=== PATIENT | female | born 1970 | race Two or more races ===

== ENCOUNTER 2020-03-13 17:48 | Inpatient (IN) | payer BC, OTHER ==
[~2020-03-13] VITALS: Ht 154.9 cm; Wt 73.5 kg
--- NOTE | 2020-03-13 18:20 | NUR ---
PT WALKED BACK FROM TRIAGE WITH CHIEF COMPLAINT OF COUGH, FEVER, CHILLS, BODY ACHES SINCE LAST NIGHT.
[2020-03-13] MEDS ORDERED: KETOROLAC 30 MG/1 ML IVPush ONE (18:30)
[2020-03-13] MEDS ORDERED: ACETAMINOPHEN 500 MG TABLET PO ONE (18:30)
[2020-03-13] MEDS ORDERED: ACETAMINOPHEN 500 MG TABLET ONE (18:35)
[2020-03-13] MEDS ORDERED: KETOROLAC 30 MG/1 ML ONE (18:35)
[2020-03-13 18:45] LABS: BASOPHILS % (AUTO) 0 % (0-1); EOSINOPHILS % (AUTO) 0 % (1-7); LYMPHOCYTES % (AUTO) 35 % (22-44); MEAN CORPUSCULAR HEMOGLOBIN 22.3 pg (27.0-34.8); MEAN CORPUSCULAR HGB CONC 31.7 g/dL (32.4-35.8); MEAN PLATELET VOLUME 7.8 fL (7.4-10.4); MONOCYTES % (AUTO) 9 % (2-9); NEUTROPHILS % (AUTO) 56 % (42-75); PLATELET COUNT 117 x10^3/uL (130-400); RED BLOOD COUNT 5.52 x10^6/uL (3.82-5.3); RED CELL DISTRIBUTION WIDTH 15.8 % (9.6-15.2)
[2020-03-13 18:46] LABS: MD MORPH REVIEW ONLY
--- NOTE | 2020-03-13 18:49 | NUR ---
REPORT TO MEENAKSHI GREER
[2020-03-13 18:57] LABS: ALANINE AMINOTRANSFERASE 56 U/L (12-78); ALBUMIN 3.9 g/dL (3.4-5.0); ANION GAP 7 mmol/L (5-15); CALCIUM 8.5 mg/dL (8.5-10.1); CHLORIDE 100 mmol/L (98-107); CREATININE 0.81 mg/dL (0.55-1.02)
--- NOTE | 2020-03-13 18:58 | NUR ---
Report ZOEY Cash./ First contact, IV by EMT. Patent./ Medicated per order, vs updated./ Call richie yang./
[2020-03-13 18:59] LABS: ALKALINE PHOSPHATASE 64 U/L (45-117); BILIRUBIN,TOTAL 0.6 mg/dL (0.2-1.0); TOTAL PROTEIN 7.7 g/dL (6.4-8.2)
[2020-03-13 19:12] LABS: ANISOCYTOSIS 1+; HYPOCHROMIA 1+; MICROCYTOSIS 1+; OVALOCYTES 1+
[2020-03-13 19:13] LABS: <PLATELET ESTIMATE> DECREASED; <PLT MORPHOLOGY> NORMAL PLT MORPH
--- NOTE | 2020-03-13 19:50 | NUR ---
Pt tearful, says she feels "worse", says "my headache is too much". Says toradol/tylenol has not helped at all. Temp 101.
[2020-03-13] MEDS ORDERED: CEFTRIAXONE PMX 1GM/50ML 50 ML ONE (20:13)
[2020-03-13] MEDS ORDERED: METOCLOPRAMIDE 5 MG/ML, 2ML ONE (20:13)
--- NOTE | 2020-03-13 20:20 | NUR ---
VS very stable, temp down./ However, pt moaning in gurney, crying says "too much pain" says head pain and body aches the worst./ IVF started, reglan per order, lab coming to draw bc x2 then will start abx./
--- NOTE | 2020-03-13 20:27 | NUR ---
O2 sats dropped, 88%RA placed on 4L to maintain sat 96%./
[2020-03-13] MEDS ORDERED: SODIUM CHLORIDE 0.9%, 500ML IVBOLUS ONE (20:30)
[2020-03-13] MEDS ORDERED: SODIUM CHLORIDE FLUSH 10ML SYR IVF ONE (20:30)
[2020-03-13] MEDS ORDERED: METOCLOPRAMIDE 5 MG/ML, 2ML IVPush ONE (20:30)
[2020-03-13] MEDS ORDERED: CEFTRIAXONE PMX 1GM/50ML 50 ML IV ONE (20:30)
--- NOTE | 2020-03-13 20:37 | NUR ---
BC x2 drawn./ ABX started./ VSS.
[2020-03-13] MEDS: DOXYCYCLINE 100 MG in DEXTROSE 5% 250 ML IV SCH (20:47)
--- NOTE | 2020-03-13 21:06 | NUR ---
Pt now answering questions for booking clerk, went in right after and pt stating she feels better and is more alert. Covid swab SECURITY CLERK was done by this nurse and walked to the lab. VS remain solid, weaned o2 down 2L sats 98%. All belongings on gurney ready for tx to covid floor. Aprox 100ml of 500ml NS bolus from ER remains. Doxy IV infusing.
[2020-03-13 21:29] VITALS: BP 102/67
[2020-03-13] MEDS ORDERED: IBUP200C8 PO (21:35)
[2020-03-13] MEDS ORDERED: SODIUM CHLORIDE 0.9% 1,000 ML IV SCH (22:00)
[2020-03-13] MEDS ORDERED: ONDANSETRON ODT 4 MG PO PRN (22:00)
[2020-03-13] MEDS ORDERED: OXYcodone IR 5MG TABLET PO PRN (22:00)
[2020-03-13] MEDS ORDERED: DOCUSATE 100 MG CAPSULE PO PRN (22:00)
[2020-03-13] MEDS ORDERED: BISACODYL 10 MG SUPP PR PRN (22:00)
[2020-03-13] MEDS ORDERED: morphine SULFATE 10 MG/ML, 1ML IVPush PRN (22:00)
[2020-03-13] MEDS ORDERED: ONDANSETRON 2MG/ML, 2ML IVPush PRN (22:00)
[2020-03-13] MEDS ORDERED: hydrALAzine 20 MG/ML, 1ML IVPush PRN (22:00)
[2020-03-13] MEDS ORDERED: POLYETHYLENE GLYCOL 17 GM PACKET PO PRN (22:00)
[2020-03-13] MEDS ORDERED: PROMETHAZINE 25 MG/ML, 1ML IM PRN (22:00)
[2020-03-13] MEDS: ENOXAPARIN 40 MG/0.4 ML SQ SCH (22:17)
[2020-03-13] MEDS: ASCORBIC ACID 500 MG TABLET PO SCH (22:56)
[2020-03-13] MEDS: ZINC SULFATE 220 MG CAPSULE PO SCH (22:56)
[2020-03-13] MEDS: DEXAMETHASONE 4 MG/ML, 1ML IVPush SCH (22:56)
[2020-03-13] MEDS: INSULIN LISPRO 100 UNITS/ML, PEN SQ-INSULIN SCH (22:58)
[2020-03-14 01:04] VITALS: BP 99/66
[2020-03-14 07:35] VITALS: BP 114/74
[2020-03-14] MEDS: DEXAMETHASONE 4 MG/ML, 1ML IVPush SCH (07:51)
[2020-03-14] MEDS: INSULIN LISPRO 100 UNITS/ML, PEN SQ-INSULIN SCH ×4 (07:51→20:22)
[2020-03-14] MEDS: ASCORBIC ACID 500 MG TABLET PO SCH ×3 (07:52→20:22)
[2020-03-14] MEDS: ZINC SULFATE 220 MG CAPSULE PO SCH (07:52)
[2020-03-14] MEDS: CHOLECALCIFEROL 5,000u TAB PO SCH (07:52)
[2020-03-14] MEDS: ACETAMINOPHEN 325 MG TABLET PO PRN ×2 (08:08→20:22)
[2020-03-14 08:43] LABS: CHLORIDE 105 mmol/L (98-107)
[2020-03-14 08:47] LABS: BASOPHILS % (AUTO) 0 % (0-1); EOSINOPHILS % (AUTO) 0 % (1-7); LYMPHOCYTES % (AUTO) 16 % (22-44); MEAN CORPUSCULAR HEMOGLOBIN 22.4 pg (27.0-34.8); MEAN CORPUSCULAR HGB CONC 31.6 g/dL (32.4-35.8); MEAN PLATELET VOLUME 8.3 fL (7.4-10.4); MONOCYTES % (AUTO) 2 % (2-9); NEUTROPHILS % (AUTO) 81 % (42-75); PLATELET COUNT 105 x10^3/uL (130-400); RED BLOOD COUNT 5.23 x10^6/uL (3.82-5.3)
[2020-03-14 08:56] LABS: ALANINE AMINOTRANSFERASE 45 U/L (12-78); ALBUMIN 3.5 g/dL (3.4-5.0); ALKALINE PHOSPHATASE 57 U/L (45-117); ANION GAP 6 mmol/L (5-15); BILIRUBIN,TOTAL 0.5 mg/dL (0.2-1.0); CHOLESTEROL, TOTAL 165 mg/dL (140-239); HDL CHOL % 25 % (28-40); HDL CHOLESTEROL (DIRECT) 41 mg/dL (40-60); LDL CHOLESTEROL,CALCULATED 94 mg/dL (54-169); LDL/HDL RATIO 2.3 (0.5-3.0); TRIGLYCERIDES 150 mg/dL (50-200); VLDL CHOLESTEROL 30 mg/dL (0-25)
[2020-03-14 09:01] LABS: D-DIMER 0.19 ug/mlFEU (0.00-0.52)
[2020-03-14 09:08] LABS: MD NO
[2020-03-14] MEDS: DOXYCYCLINE 100 MG in DEXTROSE 5% 250 ML IV SCH ×2 (10:18→22:17)
[2020-03-14] MEDS: CEFTRIAXONE PMX 1GM/50ML 50 ML IV SCH (11:49)
[2020-03-14 12:31] VITALS: BP 120/72
[2020-03-14] MEDS: AZITHROMYCIN 500 MG in SODIUM CHLORIDE 0.9% 250 ML IV SCH (12:47)
[2020-03-14 20:20] VITALS: BP 109/71
[2020-03-14] MEDS: ENOXAPARIN 40 MG/0.4 ML SQ SCH (22:17)
[2020-03-15 03:31] VITALS: BP 109/74
[2020-03-15 06:24] LABS: BASOPHILS % (AUTO) 0 % (0-1); EOSINOPHILS % (AUTO) 0 % (1-7); LYMPHOCYTES % (AUTO) 29 % (22-44); MEAN CORPUSCULAR HEMOGLOBIN 22.2 pg (27.0-34.8); MEAN CORPUSCULAR HGB CONC 31.7 g/dL (32.4-35.8); MEAN PLATELET VOLUME 8.2 fL (7.4-10.4); MONOCYTES % (AUTO) 7 % (2-9); NEUTROPHILS % (AUTO) 64 % (42-75); PLATELET COUNT 118 x10^3/uL (130-400); RED BLOOD COUNT 5.21 x10^6/uL (3.82-5.3); RED CELL DISTRIBUTION WIDTH 15.8 % (9.6-15.2)
[2020-03-15 06:33] LABS: CHLORIDE 107 mmol/L (98-107)
[2020-03-15 06:51] LABS: ALBUMIN 3.3 g/dL (3.4-5.0); ANION GAP 9 mmol/L (5-15); CALCIUM 8.5 mg/dL (8.5-10.1); CREATININE 0.59 mg/dL (0.55-1.02)
[2020-03-15 06:54] LABS: MD NO
[2020-03-15] MEDS: DEXAMETHASONE 4 MG/ML, 1ML IVPush SCH (08:17)
[2020-03-15] MEDS: CEFTRIAXONE PMX 1GM/50ML 50 ML IV SCH (08:18)
[2020-03-15] MEDS: INSULIN LISPRO 100 UNITS/ML, PEN SQ-INSULIN SCH ×2 (08:29→11:36)
[2020-03-15 08:38] LABS: CLOSTRIDIUM DIFFICILE ANTIGEN NEGATIVE; CLOSTRIDIUM DIFFICILE TOXIN NEGATIVE (Negative)
[2020-03-15] MEDS: ASCORBIC ACID 500 MG TABLET PO SCH (09:39)
[2020-03-15] MEDS: AZITHROMYCIN 500 MG in SODIUM CHLORIDE 0.9% 250 ML IV SCH (09:39)
[2020-03-15] MEDS: CHOLECALCIFEROL 5,000u TAB PO SCH (09:39)
[2020-03-15] MEDS: ZINC SULFATE 220 MG CAPSULE PO SCH (09:39)
[2020-03-15] MEDS: DOXYCYCLINE 100 MG in DEXTROSE 5% 250 ML IV SCH (10:15)
[2020-03-15 11:16] VITALS: BP 101/67
[2020-03-15] MEDS ORDERED: ASCO500T9 PO (12:31)
[2020-03-15] MEDS ORDERED: CHOL500045 PO (12:31)
[2020-03-15] MEDS ORDERED: CEFD300C37 PO (12:31)
[2020-03-15] MEDS ORDERED: METF500T PO (12:31)
[2020-03-15] MEDS ORDERED: ZINC220C7 PO (12:31)
[2020-03-15] MEDS ORDERED: AZIT250T PO (12:31)
--- NOTE | 2020-03-17 11:56 | NUR ---
THROUGHPUT RN: PT CALLED AND REQUESTED COPY OF COVID RESULTS. PT POSITIVE, STATES SPOUSE ONEAL DENTON WILL COME TECHNICAL EDITOR RESULTS AND SIGN RELEASE FOR MEDICAL INFORMATION. VERBAL CONSENT FROM PT TO RELEASE RESULTS TO SPOUSE, SPOUSE ONEAL SIGNED PAPER RELEASE IN ER.
== END 2020-03-15 14:00 | disposition home or self-care (01) | DRG 871 ==
LOC: ED 20:55 → EDIP 21:11 → 3N 21:54
PROVIDERS: ADMIT Internal Medicine; ATTEND Family Medicine
DX: A41.9 Sepsis, unspecified organism (principal); J96.01 Acute respiratory failure with hypoxia; U07.1 COVID-19; J12.89 Other viral pneumonia; E11.65 Type 2 diabetes mellitus with hyperglycemia; E87.6 Hypokalemia
CPT/HCPCS: 36415; 71045; 80053; 80061; 80069; 82962; 83036; 83605; 83615; 83735; 84145; 84443; 85025; 85379; 85384; 87040; 87324; 87635; G0378; J0456; J0696; J1100; J1650; J1885; J2405; J7060; J1815; J2765; J7030; J7040; J7050

== ENCOUNTER 2020-03-18 13:58 | Inpatient (IN) | payer OTHER ==
[~2020-03-18] VITALS: Ht 154.9 cm; Wt 74.6 kg
[~2020-03-18 13:58] MED LIST: ASCO500T9 PO; AZIT250T PO; CEFD300C37 PO; CHOL500045 PO; IBUP200C8 PO; METF500T PO; ZINC220C7 PO
--- NOTE | 2020-03-18 14:05 | NUR ---
ONEAL (SPOUSE) [phone] OK TO CALL W/ UPDATES.
[2020-03-18] MEDS ORDERED: ACETAMINOPHEN 500 MG TABLET ONE (14:27)
[2020-03-18] MEDS ORDERED: ONDANSETRON ODT 4 MG ONE (14:28)
[2020-03-18] MEDS ORDERED: ACETAMINOPHEN 500 MG TABLET PO ONE (14:30)
[2020-03-18] MEDS ORDERED: ONDANSETRON ODT 4 MG PO ONE (14:30)
--- NOTE | 2020-03-18 14:34 | NUR ---
Task rn: medicated per emar for fever/nausea emt at bedside for piv from which set of labs including 1 set of blood cultures drawn Room air 82%, Requiring 4L NC for pox >92%
--- NOTE | 2020-03-18 14:50 | NUR ---
REPORT TAKEN FROM TASK RN SHADIA, CARE ASSUMED BY THIS RN.
--- NOTE | 2020-03-18 15:53 | NUR ---
PT PRESENTS TO ED WITH C/O COUGH AND DIFFICULTY BREATHING X 13 DAYS. PT ADMITTED TO THIS HOSPITAL 03/13/20 AND DISCHARGED, UNCERTAIN DISCHARGE DATE. PT STATES SHE BEGAN TO HAVE CHEST PAIN YESTERDAY. PT IS A&O, RESPS EVEN AND UNLABORED. COUGHING FREQUENTLY. TYLENOL AND ZOFRAN ADMINISTERED PER PROTOCOL, FEVER IMPROVED. DROPLET PLUS ISOLATION PRECAUTIONS IN PLACE. PT SEEN AND EXAMINED BY JJ MAY, AWAITING FURTHER ORDERS AT THIS TIME.
[2020-03-18] MEDS ORDERED: IBUPROFEN PO (15:56)
[2020-03-18] MEDS ORDERED: ALBUTEROL/IPRATROPIUM 2.5MG/0.5MG, 3 ML ONE (16:56)
[2020-03-18] MEDS ORDERED: ALBUTEROL/IPRATROPIUM 2.5MG/0.5MG, 3 ML NPPB ONE (17:00)
[2020-03-18 17:07] LABS: ALANINE AMINOTRANSFERASE 40 U/L (12-78); ANION GAP 7 mmol/L (5-15); CALCIUM 8.7 mg/dL (8.5-10.1); CHLORIDE 104 mmol/L (98-107); CREATININE 0.69 mg/dL (0.55-1.02)
[2020-03-18 17:09] LABS: ALKALINE PHOSPHATASE 49 U/L (45-117); BILIRUBIN,TOTAL 0.5 mg/dL (0.2-1.0); TOTAL PROTEIN 6.9 g/dL (6.4-8.2)
--- NOTE | 2020-03-18 17:10 | NUR ---
TASK RN: NEBULIZED PER EMAR FOR COUGH/WHEEZING VITALS UPDATED MD TO BEDSIDE- REPORTS TO ADMIT FOR COVID WORKUP ADD DSTEROIDS ABX
[2020-03-18 17:22] LABS: BASOPHILS % (AUTO) 1 % (0-1); EOSINOPHILS % (AUTO) 0 % (1-7); LYMPHOCYTES % (AUTO) 22 % (22-44); MEAN CORPUSCULAR HEMOGLOBIN 22.1 pg (27.0-34.8); MEAN CORPUSCULAR HGB CONC 31.8 g/dL (32.4-35.8); MEAN PLATELET VOLUME 8.9 fL (7.4-10.4); MONOCYTES % (AUTO) 6 % (2-9); NEUTROPHILS % (AUTO) 71 % (42-75); PLATELET COUNT 111 x10^3/uL (130-400); RED BLOOD COUNT 5.79 x10^6/uL (3.82-5.3); RED CELL DISTRIBUTION WIDTH 15.5 % (9.6-15.2)
--- NOTE | 2020-03-18 17:22 | NUR ---
LAB TO BEDSIDE TO FOR BLOOD CULTURES X2 THEN TO ADMIN ABX
[2020-03-18 17:23] LABS: MD NO
[2020-03-18] MEDS ORDERED: DEXAMETHASONE 4 MG/ML, 1ML ONE (17:28)
[2020-03-18] MEDS ORDERED: CEFTRIAXONE PMX 1GM/50ML 50 ML ONE (17:28)
[2020-03-18] MEDS ORDERED: DEXAMETHASONE 4 MG/ML, 1ML IVPush ONE (17:30)
[2020-03-18] MEDS ORDERED: CEFTRIAXONE PMX 1GM/50ML 50 ML IV ONE (17:30)
[2020-03-18] MEDS ORDERED: DEXAMETHASONE 4 MG TABLET PO ONE (17:30)
[2020-03-18] MEDS ORDERED: AZITHROMYCIN 500 MG in SODIUM CHLORIDE 0.9% 250 ML IV ONE (17:30)
--- NOTE | 2020-03-18 17:30 | NUR ---
this RN confirmed with lab that blood cx have been drawn x 2, RN given ok to give IV abx.
[2020-03-18] MEDS ORDERED: BENZONATATE 100 MG CAPSULE ONE (17:39)
[2020-03-18] MEDS ORDERED: SODIUM CHLORIDE FLUSH 10ML SYR IVF PRN (18:00)
[2020-03-18] MEDS ORDERED: BENZONATATE 100 MG CAPSULE PO ONE (18:00)
[2020-03-18] MEDS: DEXAMETHASONE 4 MG TABLET PO SCH (18:24)
[2020-03-18] MEDS ORDERED: hydrALAzine 20 MG/ML, 1ML IVPush PRN (18:30)
[2020-03-18] MEDS ORDERED: ONDANSETRON ODT 4 MG PO PRN (18:30)
[2020-03-18] MEDS ORDERED: ONDANSETRON 2MG/ML, 2ML IVPush PRN (18:30)
[2020-03-18] MEDS ORDERED: DOCUSATE 100 MG CAPSULE PO PRN (18:30)
--- NOTE | 2020-03-18 19:20 | NUR ---
REPORT TO RN EMLVIN AT BEDSIDE. PT A&O, RESPS EVENAND UNLABORED. ALL MONITORS IN PLACE. CALL LIGHT IN REACH.
[2020-03-18] MEDS ORDERED: ENOXAPARIN 40 MG/0.4 ML ONE (19:39)
[2020-03-18] MEDS ORDERED: TIZA4CAP PO (20:00)
[2020-03-18] MEDS ORDERED: NABU750T7 PO (20:00)
[2020-03-18] MEDS: ENOXAPARIN 40 MG/0.4 ML SQ SCH (20:12)
--- NOTE | 2020-03-18 20:46 | NUR ---
Task RN: Report given to ZOEY Ray. Patient to be transferred to room 425.
[2020-03-18 21:20] VITALS: BP 96/64
[2020-03-18] MEDS: GUAIFENESIN/DM 200-20MG, 10ML UDC PO PRN (21:48)
[2020-03-18] MEDS: DIPHENHYDRAMINE 25 MG CAPSULE PO PRN (21:48)
[2020-03-18] MEDS: ACETAMINOPHEN 325 MG TABLET PO PRN (21:48)
[2020-03-18] MEDS: SODIUM CHLORIDE 0.9% 1,000 ML IV SCH (21:49)
[2020-03-19 00:22] VITALS: BP 89/56
[2020-03-19] MEDS: LORazepam 0.5MG TABLET PO PRN (01:03)
[2020-03-19] MEDS: GUAIFENESIN/DM 200-20MG, 10ML UDC PO PRN ×3 (05:47→20:12)
[2020-03-19] MEDS: ACETAMINOPHEN 325 MG TABLET PO PRN ×3 (05:47→17:14)
[2020-03-19 06:22] LABS: BASOPHILS % (AUTO) 0 % (0-1); EOSINOPHILS % (AUTO) 0 % (1-7); LYMPHOCYTES % (AUTO) 15 % (22-44); MEAN CORPUSCULAR HEMOGLOBIN 22.1 pg (27.0-34.8); MEAN CORPUSCULAR HGB CONC 31.9 g/dL (32.4-35.8); MEAN PLATELET VOLUME 8.7 fL (7.4-10.4); MONOCYTES % (AUTO) 4 % (2-9); NEUTROPHILS % (AUTO) 81 % (42-75); PLATELET COUNT 96 x10^3/uL (130-400); RED BLOOD COUNT 5.31 x10^6/uL (3.82-5.3)
[2020-03-19 06:24] LABS: MD NO
[2020-03-19 06:34] LABS: ALBUMIN 3.1 g/dL (3.4-5.0); ANION GAP 7 mmol/L (5-15); CALCIUM 8.7 mg/dL (8.5-10.1); CHLORIDE 103 mmol/L (98-107)
[2020-03-19 06:44] LABS: ALANINE AMINOTRANSFERASE 37 U/L (12-78); ALKALINE PHOSPHATASE 50 U/L (45-117); BILIRUBIN,TOTAL 0.5 mg/dL (0.2-1.0); CREATININE 0.71 mg/dL (0.55-1.02); TOTAL PROTEIN 7.3 g/dL (6.4-8.2)
[2020-03-19] MEDS: DEXAMETHASONE 4 MG TABLET PO SCH (07:50)
[2020-03-19] MEDS: ASCORBIC ACID 500 MG TABLET PO SCH ×2 (07:50→17:14)
[2020-03-19] MEDS: CHOLECALCIFEROL 1,000 UNIT TABLET PO SCH (07:50)
[2020-03-19 08:03] VITALS: BP 109/71
[2020-03-19] MEDS: SODIUM CHLORIDE 0.9% 1,000 ML IV SCH (11:55)
[2020-03-19] MEDS: INSULIN LISPRO 100 UNITS/ML, PEN SQ-INSULIN SCH ×3 (12:47→20:13)
[2020-03-19 13:46] VITALS: BP 88/55
[2020-03-19 13:49] VITALS: BP 98/64
[2020-03-19] MEDS ORDERED: REMDESIVIR 200 MG in SODIUM CHLORIDE 0.9% 250 ML IVPB ONE (17:30)
[2020-03-19 20:11] VITALS: BP 97/61
[2020-03-19] MEDS: DIPHENHYDRAMINE 25 MG CAPSULE PO PRN (20:12)
[2020-03-19] MEDS: ENOXAPARIN 40 MG/0.4 ML SQ SCH (20:13)
[2020-03-20 01:00] VITALS: BP 99/65
[2020-03-20 04:09] VITALS: BP 98/64
[2020-03-20] MEDS: SODIUM CHLORIDE 0.9% 1,000 ML IV SCH (04:15)
[2020-03-20] MEDS: GUAIFENESIN/DM 200-20MG, 10ML UDC PO PRN ×2 (04:15→12:00)
[2020-03-20] MEDS: LORazepam 0.5MG TABLET PO PRN (04:15)
[2020-03-20 06:25] LABS: ALBUMIN 2.8 g/dL (3.4-5.0); ANION GAP 7 mmol/L (5-15); CALCIUM 8.7 mg/dL (8.5-10.1); CHLORIDE 105 mmol/L (98-107)
[2020-03-20 06:29] LABS: ALANINE AMINOTRANSFERASE 28 U/L (12-78); ALKALINE PHOSPHATASE 42 U/L (45-117); BILIRUBIN,TOTAL 0.5 mg/dL (0.2-1.0); TOTAL PROTEIN 6.4 g/dL (6.4-8.2)
[2020-03-20 06:36] VITALS: BP 91/59
[2020-03-20] MEDS: DEXAMETHASONE 4 MG TABLET PO SCH (07:50)
[2020-03-20] MEDS: CHOLECALCIFEROL 1,000 UNIT TABLET PO SCH (07:51)
[2020-03-20] MEDS: ASCORBIC ACID 500 MG TABLET PO SCH ×2 (07:51→16:14)
[2020-03-20] MEDS: ACETAMINOPHEN 325 MG TABLET PO PRN ×2 (07:51→16:13)
[2020-03-20] MEDS: INSULIN LISPRO 100 UNITS/ML, PEN SQ-INSULIN SCH ×4 (08:00→20:46)
[2020-03-20] MEDS: BENZONATATE 100 MG CAPSULE PO SCH ×3 (12:09→20:45)
[2020-03-20 16:19] VITALS: BP 94/60
[2020-03-20] MEDS: REMDESIVIR 100 MG in SODIUM CHLORIDE 0.9% 250 ML IVPB SCH (18:18)
[2020-03-20 18:35] VITALS: BP 94/62
[2020-03-20] MEDS: ENOXAPARIN 40 MG/0.4 ML SQ SCH (20:45)
[2020-03-20] MEDS: DIPHENHYDRAMINE 25 MG CAPSULE PO PRN (20:52)
[2020-03-21 02:03] VITALS: BP 82/50
[2020-03-21 02:07] VITALS: BP 95/59
[2020-03-21 04:54] LABS: BASOPHILS % (AUTO) 1 % (0-1); EOSINOPHILS % (AUTO) 0 % (1-7); LYMPHOCYTES % (AUTO) 23 % (22-44); MEAN CORPUSCULAR HEMOGLOBIN 21.9 pg (27.0-34.8); MEAN CORPUSCULAR HGB CONC 31.5 g/dL (32.4-35.8); MEAN PLATELET VOLUME 8.6 fL (7.4-10.4); MONOCYTES % (AUTO) 8 % (2-9); NEUTROPHILS % (AUTO) 69 % (42-75); PLATELET COUNT 111 x10^3/uL (130-400); RED BLOOD COUNT 4.78 x10^6/uL (3.82-5.3); RED CELL DISTRIBUTION WIDTH 15.5 % (9.6-15.2)
[2020-03-21 05:02] LABS: ALANINE AMINOTRANSFERASE 27 U/L (12-78); ALBUMIN 2.7 g/dL (3.4-5.0); ANION GAP 7 mmol/L (5-15); CALCIUM 8.4 mg/dL (8.5-10.1); CHLORIDE 106 mmol/L (98-107); CREATININE 0.59 mg/dL (0.55-1.02)
[2020-03-21 05:04] LABS: ALKALINE PHOSPHATASE 42 U/L (45-117); BILIRUBIN,TOTAL 0.5 mg/dL (0.2-1.0); TOTAL PROTEIN 6.4 g/dL (6.4-8.2)
[2020-03-21 05:19] LABS: MD NO
[2020-03-21] MEDS: INSULIN LISPRO 100 UNITS/ML, PEN SQ-INSULIN SCH ×4 (07:00→20:16)
[2020-03-21 07:17] LABS: D-DIMER 0.28 ug/mlFEU (0.00-0.52)
[2020-03-21 07:24] VITALS: BP 91/61
[2020-03-21] MEDS: ASCORBIC ACID 500 MG TABLET PO SCH ×2 (07:54→16:50)
[2020-03-21] MEDS: BENZONATATE 100 MG CAPSULE PO SCH ×3 (07:55→20:17)
[2020-03-21] MEDS: CHOLECALCIFEROL 1,000 UNIT TABLET PO SCH (07:55)
[2020-03-21] MEDS: DEXAMETHASONE 4 MG TABLET PO SCH (07:55)
[2020-03-21 13:27] VITALS: BP 94/62
[2020-03-21] MEDS: REMDESIVIR 100 MG in SODIUM CHLORIDE 0.9% 250 ML IVPB SCH (16:50)
[2020-03-21] MEDS ORDERED: INSULIN LISPRO 100 UNIT/ML, 3ML VIAL SQ-INSULIN ONE (19:00)
[2020-03-21 20:11] VITALS: BP 92/59
[2020-03-21] MEDS: ENOXAPARIN 40 MG/0.4 ML SQ SCH (20:17)
[2020-03-22 00:38] VITALS: BP 92/59
[2020-03-22 06:34] LABS: BASOPHILS % (AUTO) 0 % (0-1); EOSINOPHILS % (AUTO) 0 % (1-7); LYMPHOCYTES % (AUTO) 26 % (22-44); MEAN CORPUSCULAR HEMOGLOBIN 21.7 pg (27.0-34.8); MEAN CORPUSCULAR HGB CONC 31.4 g/dL (32.4-35.8); MEAN PLATELET VOLUME 9.2 fL (7.4-10.4); MONOCYTES % (AUTO) 12 % (2-9); NEUTROPHILS % (AUTO) 62 % (42-75); PLATELET COUNT 116 x10^3/uL (130-400); RED BLOOD COUNT 5.05 x10^6/uL (3.82-5.3); RED CELL DISTRIBUTION WIDTH 15.7 % (9.6-15.2)
[2020-03-22 06:37] LABS: CHLORIDE 104 mmol/L (98-107)
[2020-03-22 06:39] LABS: HCT (SEDRATE) 34.7 % (34.6-47.8)
[2020-03-22 06:49] LABS: MD NO
[2020-03-22 07:00] LABS: ALANINE AMINOTRANSFERASE 26 U/L (12-78); ALBUMIN 2.8 g/dL (3.4-5.0); ALKALINE PHOSPHATASE 42 U/L (45-117); ANION GAP 7 mmol/L (5-15); BILIRUBIN,TOTAL 0.7 mg/dL (0.2-1.0); CALCIUM 8.8 mg/dL (8.5-10.1); CREATININE 0.59 mg/dL (0.55-1.02); TOTAL PROTEIN 6.5 g/dL (6.4-8.2)
[2020-03-22] MEDS: INSULIN LISPRO 100 UNITS/ML, PEN SQ-INSULIN SCH ×4 (07:00→21:26)
[2020-03-22] MEDS: CHOLECALCIFEROL 1,000 UNIT TABLET PO SCH (07:34)
[2020-03-22] MEDS: BENZONATATE 100 MG CAPSULE PO SCH ×3 (07:34→21:06)
[2020-03-22] MEDS: ASCORBIC ACID 500 MG TABLET PO SCH ×2 (07:34→17:04)
[2020-03-22] MEDS: DEXAMETHASONE 4 MG TABLET PO SCH (07:35)
[2020-03-22 08:01] LABS: D-DIMER 0.33 ug/mlFEU (0.00-0.52); INTERNATIONAL NORMALIZED RATIO 1.03 (0.93-1.1); PROTHROMBIN TIME 10.9 Seconds (9.6-11.5)
[2020-03-22 09:45] VITALS: BP 91/53
[2020-03-22] MEDS ORDERED: POLYETHYLENE GLYCOL 17 GM PACKET PO ONE (10:00)
[2020-03-22] MEDS ORDERED: GUAIFENESIN/DM 200-20MG, 10ML UDC PO PRN (12:00)
[2020-03-22 14:02] VITALS: BP 105/64
[2020-03-22] MEDS: REMDESIVIR 100 MG in SODIUM CHLORIDE 0.9% 250 ML IVPB SCH (17:04)
[2020-03-22] MEDS: GUAIFENESIN/DM 200-20MG, 10ML UDC PO PRN (17:05)
[2020-03-22 20:07] VITALS: BP 94/58
[2020-03-22] MEDS: ENOXAPARIN 40 MG/0.4 ML SQ SCH (21:06)
[2020-03-22] MEDS: INSULIN GLARGINE 100 UNITS/ML, PEN SQ-INSULIN SCH (21:27)
[2020-03-23 01:18] VITALS: BP 98/61
[2020-03-23 07:27] LABS: BASOPHILS % (AUTO) 0 % (0-1); EOSINOPHILS % (AUTO) 0 % (1-7); LYMPHOCYTES % (AUTO) 27 % (22-44); MEAN CORPUSCULAR HGB CONC 31.9 g/dL (32.4-35.8); MEAN PLATELET VOLUME 8.6 fL (7.4-10.4); MONOCYTES % (AUTO) 10 % (2-9); NEUTROPHILS % (AUTO) 63 % (42-75); PLATELET COUNT 133 x10^3/uL (130-400); RED BLOOD COUNT 4.93 x10^6/uL (3.82-5.3); RED CELL DISTRIBUTION WIDTH 15.6 % (9.6-15.2)
[2020-03-23 07:39] LABS: ALBUMIN 2.8 g/dL (3.4-5.0); CHLORIDE 104 mmol/L (98-107)
[2020-03-23] MEDS: ASCORBIC ACID 500 MG TABLET PO SCH ×2 (07:41→17:06)
[2020-03-23] MEDS: DEXAMETHASONE 4 MG TABLET PO SCH (07:41)
[2020-03-23 07:54] VITALS: BP 103/62
[2020-03-23 07:56] LABS: ALANINE AMINOTRANSFERASE 24 U/L (12-78); ALKALINE PHOSPHATASE 43 U/L (45-117); ANION GAP 6 mmol/L (5-15); BILIRUBIN,TOTAL 0.8 mg/dL (0.2-1.0); C-REACTIVE PROTEIN, QUANT 0.61 mg/dL (0.02-0.49); CALCIUM 8.3 mg/dL (8.5-10.1); CREATININE 0.72 mg/dL (0.55-1.02); TOTAL PROTEIN 6.3 g/dL (6.4-8.2)
[2020-03-23 08:20] LABS: D-DIMER 0.31 ug/mlFEU (0.00-0.52); INTERNATIONAL NORMALIZED RATIO 1.07 (0.93-1.1); PROTHROMBIN TIME 11.3 Seconds (9.6-11.5)
[2020-03-23 09:08] LABS: MD MORPH REVIEW ONLY
[2020-03-23 09:09] LABS: <PLATELET ESTIMATE> ADEQUATE; <PLT MORPHOLOGY> NORMAL PLT MORPH; ANISOCYTOSIS 1+; HYPOCHROMIA 1+; MICROCYTOSIS 1+; POLYCHROMASIA 1+; TARGET CELLS 1+; TEAR DROPS 1+
[2020-03-23] MEDS: INSULIN LISPRO 100 UNITS/ML, PEN SQ-INSULIN SCH ×4 (09:49→20:13)
[2020-03-23] MEDS: BENZONATATE 100 MG CAPSULE PO SCH ×3 (09:50→20:11)
[2020-03-23] MEDS: CHOLECALCIFEROL 1,000 UNIT TABLET PO SCH (09:50)
[2020-03-23] MEDS ORDERED: POLYETHYLENE GLYCOL 17 GM PACKET NG ONE (12:30)
[2020-03-23] MEDS ORDERED: FUROSEMIDE 20 MG/2 ML IV ONE (12:30)
[2020-03-23 13:09] VITALS: BP 107/62
[2020-03-23] MEDS: REMDESIVIR 100 MG in SODIUM CHLORIDE 0.9% 250 ML IVPB SCH (17:49)
[2020-03-23] MEDS: ENOXAPARIN 40 MG/0.4 ML SQ SCH (20:11)
[2020-03-23] MEDS: K-PHOS NEUTRAL 250MG TAB PO SCH (20:11)
[2020-03-23] MEDS: INSULIN GLARGINE 100 UNITS/ML, PEN SQ-INSULIN SCH (20:13)
[2020-03-23 20:18] VITALS: BP 90/57
[2020-03-24 00:59] VITALS: BP 105/69
[2020-03-24 06:29] LABS: BASOPHILS % (AUTO) 0 % (0-1); EOSINOPHILS % (AUTO) 0 % (1-7); LYMPHOCYTES % (AUTO) 29 % (22-44); MEAN CORPUSCULAR HGB CONC 31.9 g/dL (32.4-35.8); MEAN PLATELET VOLUME 8.5 fL (7.4-10.4); MONOCYTES % (AUTO) 10 % (2-9); NEUTROPHILS % (AUTO) 60 % (42-75); PLATELET COUNT 154 x10^3/uL (130-400); RED BLOOD COUNT 4.98 x10^6/uL (3.82-5.3); RED CELL DISTRIBUTION WIDTH 15.8 % (9.6-15.2)
[2020-03-24 06:30] LABS: HCT (SEDRATE) 34.3 % (34.6-47.8); MD NO
[2020-03-24 06:41] LABS: CALCIUM 8.9 mg/dL (8.5-10.1); CHLORIDE 101 mmol/L (98-107)
[2020-03-24 06:44] LABS: D-DIMER 0.26 ug/mlFEU (0.00-0.52); INTERNATIONAL NORMALIZED RATIO 1.07 (0.93-1.1); PROTHROMBIN TIME 11.3 Seconds (9.6-11.5)
[2020-03-24 06:50] LABS: ALANINE AMINOTRANSFERASE 21 U/L (12-78); ALBUMIN 2.9 g/dL (3.4-5.0); ALKALINE PHOSPHATASE 44 U/L (45-117); ANION GAP 3 mmol/L (5-15); CREATININE 0.78 mg/dL (0.55-1.02); TOTAL PROTEIN 6.4 g/dL (6.4-8.2)
[2020-03-24 07:36] VITALS: BP 100/63
[2020-03-24] MEDS ORDERED: POTASSIUM CHLORIDE 20 MEQ TAB.ER.PRT PO ONE (08:00)
[2020-03-24] MEDS: ASCORBIC ACID 500 MG TABLET PO SCH ×2 (08:00→16:40)
[2020-03-24] MEDS: DEXAMETHASONE 4 MG TABLET PO SCH (08:00)
[2020-03-24] MEDS: K-PHOS NEUTRAL 250MG TAB PO SCH (09:52)
[2020-03-24] MEDS: CHOLECALCIFEROL 1,000 UNIT TABLET PO SCH (09:52)
[2020-03-24] MEDS: BENZONATATE 100 MG CAPSULE PO SCH ×3 (09:52→21:07)
[2020-03-24] MEDS: INSULIN LISPRO 100 UNITS/ML, PEN SQ-INSULIN SCH ×4 (09:52→21:09)
[2020-03-24] MEDS: CEFTRIAXONE PMX 1GM/50ML 50 ML IV SCH (18:32)
[2020-03-24 19:56] VITALS: BP 105/60
[2020-03-24] MEDS: DOXYCYCLINE 100MG CAP PO SCH (21:07)
[2020-03-24] MEDS: ACETAMINOPHEN 325 MG TABLET PO PRN (21:07)
[2020-03-24] MEDS: ENOXAPARIN 40 MG/0.4 ML SQ SCH (21:07)
[2020-03-24] MEDS: INSULIN GLARGINE 100 UNITS/ML, PEN SQ-INSULIN SCH (21:10)
[2020-03-25 01:52] VITALS: BP 100/65
[2020-03-25 05:01] LABS: HCT (SEDRATE) 36.4 % (34.6-47.8)
[2020-03-25 05:03] LABS: BASOPHILS % (AUTO) 0 % (0-1); EOSINOPHILS % (AUTO) 0 % (1-7); LYMPHOCYTES % (AUTO) 27 % (22-44); MEAN CORPUSCULAR HGB CONC 31.4 g/dL (32.4-35.8); MONOCYTES % (AUTO) 10 % (2-9); NEUTROPHILS % (AUTO) 63 % (42-75); PLATELET COUNT 165 x10^3/uL (130-400); RED BLOOD COUNT 5.19 x10^6/uL (3.82-5.3); RED CELL DISTRIBUTION WIDTH 15.4 % (9.6-15.2)
[2020-03-25 05:07] LABS: D-DIMER 0.54 ug/mlFEU (0.00-0.52); INTERNATIONAL NORMALIZED RATIO 1.08 (0.93-1.1); PROTHROMBIN TIME 11.4 Seconds (9.6-11.5)
[2020-03-25 05:10] LABS: ANION GAP 5 mmol/L (5-15); CALCIUM 8.4 mg/dL (8.5-10.1); CHLORIDE 103 mmol/L (98-107)
[2020-03-25 05:15] LABS: ALANINE AMINOTRANSFERASE 23 U/L (12-78); ALKALINE PHOSPHATASE 42 U/L (45-117); BILIRUBIN,TOTAL 0.8 mg/dL (0.2-1.0); CREATININE 0.68 mg/dL (0.55-1.02); TOTAL PROTEIN 6.7 g/dL (6.4-8.2)
[2020-03-25 05:18] LABS: MD NO
[2020-03-25 07:12] VITALS: BP 104/66
[2020-03-25] MEDS: INSULIN LISPRO 100 UNITS/ML, PEN SQ-INSULIN SCH ×4 (07:54→21:34)
[2020-03-25] MEDS: BENZONATATE 100 MG CAPSULE PO SCH ×3 (07:55→21:33)
[2020-03-25] MEDS: ASCORBIC ACID 500 MG TABLET PO SCH ×2 (07:55→15:47)
[2020-03-25] MEDS: DEXAMETHASONE 4 MG TABLET PO SCH (07:55)
[2020-03-25] MEDS: CHOLECALCIFEROL 1,000 UNIT TABLET PO SCH (07:55)
[2020-03-25] MEDS: DOXYCYCLINE 100MG CAP PO SCH ×2 (07:55→21:33)
[2020-03-25 13:20] VITALS: BP 90/58
[2020-03-25] MEDS: CEFTRIAXONE PMX 1GM/50ML 50 ML IV SCH (17:34)
[2020-03-25 21:20] VITALS: BP 103/65
[2020-03-25] MEDS: ENOXAPARIN 40 MG/0.4 ML SQ SCH (21:33)
[2020-03-25] MEDS: INSULIN GLARGINE 100 UNITS/ML, PEN SQ-INSULIN SCH (21:33)
[2020-03-26 00:51] VITALS: BP 98/61
[2020-03-26 06:30] LABS: BASOPHILS % (AUTO) 0 % (0-1); EOSINOPHILS % (AUTO) 0 % (1-7); LYMPHOCYTES % (AUTO) 24 % (22-44); MEAN CORPUSCULAR HEMOGLOBIN 22.1 pg (27.0-34.8); MEAN CORPUSCULAR HGB CONC 31.4 g/dL (32.4-35.8); MEAN PLATELET VOLUME 8.7 fL (7.4-10.4); MONOCYTES % (AUTO) 8 % (2-9); NEUTROPHILS % (AUTO) 68 % (42-75); PLATELET COUNT 181 x10^3/uL (130-400); RED BLOOD COUNT 5.03 x10^6/uL (3.82-5.3); RED CELL DISTRIBUTION WIDTH 15.5 % (9.6-15.2)
[2020-03-26 06:32] LABS: ANION GAP 6 mmol/L (5-15); CALCIUM 8.8 mg/dL (8.5-10.1); CHLORIDE 101 mmol/L (98-107)
[2020-03-26 06:36] LABS: ALANINE AMINOTRANSFERASE 23 U/L (12-78); ALKALINE PHOSPHATASE 45 U/L (45-117); BILIRUBIN,TOTAL 0.8 mg/dL (0.2-1.0); CREATININE 0.81 mg/dL (0.55-1.02); TOTAL PROTEIN 6.4 g/dL (6.4-8.2)
[2020-03-26 06:53] LABS: MD NO
[2020-03-26] MEDS: DEXAMETHASONE 4 MG TABLET PO SCH (07:30)
[2020-03-26] MEDS: INSULIN LISPRO 100 UNITS/ML, PEN SQ-INSULIN SCH (07:30)
[2020-03-26] MEDS: CHOLECALCIFEROL 1,000 UNIT TABLET PO SCH (07:30)
[2020-03-26] MEDS: BENZONATATE 100 MG CAPSULE PO SCH (07:30)
[2020-03-26] MEDS: ASCORBIC ACID 500 MG TABLET PO SCH (07:30)
[2020-03-26] MEDS: DOXYCYCLINE 100MG CAP PO SCH (07:30)
[2020-03-26 07:33] VITALS: BP 91/53
[2020-03-26] MEDS ORDERED: CHOL10003 PO (10:34)
[2020-03-26] MEDS ORDERED: ASCO500T9 PO (10:34)
[2020-03-26] MEDS ORDERED: DOXY100C2 PO (10:34)
[2020-03-26] MEDS ORDERED: METF750T42 PO (10:48)
== END 2020-03-26 11:26 | disposition home or self-care (01) | DRG 871 ==
LOC: ED 15:22 → EDIP 17:32 → SUATTDRO 18:05 → 4WST 21:15
PROVIDERS: ADMIT Hospitalist; ATTEND Hospitalist
PROC: XW033E5 Introduction of Remdesivir Anti-infective into Peripheral Vein, Percutaneous Approach, New Technology Group 5 (ICD-10-PCS; principal; 2020-03-20)
DX: A41.9 Sepsis, unspecified organism (principal); J12.89 Other viral pneumonia; J96.01 Acute respiratory failure with hypoxia; U07.1 COVID-19; E87.1 Hypo-osmolality and hyponatremia; D69.59 Other secondary thrombocytopenia; E11.9 Type 2 diabetes mellitus without complications; E86.0 Dehydration; R65.20 Severe sepsis without septic shock; Z86.19 Personal history of other infectious and parasitic diseases
CPT/HCPCS: 36415; 71045; 80053; 82728; 82947; 82962; 83605; 83615; 83735; 83880; 84100; 84145; 85025; 85379; 85384; 85610; 85651; 86140; 87040; 93005; 96374; 96375; 99285; G0378; J0456; J0696; J1100; J1650; J2405; Q0162; J1815; J1940; J7030; J7050; Q0163